=== PATIENT | male | born 1950 | race Caucasian/White ===

== ENCOUNTER 2018-02-17 07:06 | Inpatient (IN) | payer MEDICARE, MEDICAID ==
[~2018-02-17] VITALS: Ht 175.3 cm; Wt 75.3 kg
[2018-02-17 07:15] VITALS: Ht 175.3 cm; Wt 75.3 kg
[2018-02-17 07:52] LABS: BASOPHIL % 0.6 % (0-2); PLATELET COUNT 186 x10^3mcL (130-400); RED CELL DISTRIBUTION WIDTH 13.6 % (11.5-14.5)
[2018-02-17 08:07] LABS: CALCIUM 8.7 mg/dL (8.5-10.1); CARBON DIOXIDE 27.7 mmol/L (21-32); CHLORIDE SERUM 105 mmol/L (98-107); GFR1 > 60 mL/min; GLUCOSE SERUM 100 mg/dL (74-106); POTASSIUM SERUM 4.3 mmol/L (3.5-5.1); SODIUM SERUM 141 mmol/L (136-145)
[2018-02-17 08:12] LABS: ALBUMIN 3.6 g/dL (3.4-5.0); ALKALINE PHOSPHATASE 64 U/L (46-116); ALT/SGPT 38 U/L (16-63); AST/SGOT 27 U/L (15-37); BILIRUBIN TOTAL 0.42 mg/dL (0.20-1.00)
[2018-02-17] MEDS ORDERED: CLOPIDOGREL75 M1 ×2 (09:00→09:01)
[2018-02-17] MEDS ORDERED: ZESTRIL5 MG ×2 (09:00→09:01)
[2018-02-17] MEDS ORDERED: ADVIL200 M1 (09:02)
[2018-02-17] MEDS ORDERED: RANEXA1000 M2 (09:02)
[2018-02-17] MEDS ORDERED: CARVEDILOL6.25 M1 PO (09:02)
[2018-02-17] MEDS ORDERED: TAMSULOSIN HYD0.4 M1 (09:02)
[2018-02-17] MEDS ORDERED: LIPITOR80 MG (09:03)
[2018-02-17 09:58] LABS: T3 TOTAL 0.9 ng/mL
[2018-02-17 10:03] LABS: MAGNESIUM 2.1 mg/dL (1.8-2.4); PHOSPHOROUS 4.4 mg/dL (2.5-4.9)
[2018-02-17 10:04] LABS: CHOLESTEROL/HDL RATIO 2.3
[2018-02-17 10:09] LABS: FREE T4 0.74 ng/dL (0.76-1.46); FREE THYROXINE INDEX 1.8 ug/dL (1.4-4.5)
[2018-02-17 10:49] VITALS: BP 117/67
[2018-02-17 12:56] LABS: microscopic required? NO
[2018-02-17 13:09] LABS: UA SPECIFIC GRAVITY 1.015 (1.005-1.035); urine erythrocyte NEGATIVE (NEGATIVE)
[2018-02-17 13:16] VITALS: BP 119/68
[2018-02-17 16:23] VITALS: BP 112/65
[2018-02-17 19:25] VITALS: BP 107/63
[2018-02-18 05:42] VITALS: BP 109/65
[2018-02-18 06:58] LABS: CALCIUM 9.3 mg/dL (8.5-10.1); CARBON DIOXIDE 32.5 mmol/L (21-32); CHLORIDE SERUM 103 mmol/L (98-107); CREATININE SERUM 1.2 mg/dL (0.7-1.3); GFR1 > 60 mL/min; GLUCOSE SERUM 107 mg/dL (74-106); MAGNESIUM 2.1 mg/dL (1.8-2.4); PHOSPHOROUS 4.4 mg/dL (2.5-4.9); POTASSIUM SERUM 4.9 mmol/L (3.5-5.1); SODIUM SERUM 139 mmol/L (136-145)
[2018-02-18 07:16] LABS: BASOPHIL % 0.4 % (0-2); PLATELET COUNT 177 x10^3mcL (130-400)
[2018-02-18 07:22] LABS: RED CELL DISTRIBUTION WIDTH 14.9 % (11.5-14.5)
[2018-02-18 10:00] VITALS: BP 111/61
[2018-02-18 13:33] VITALS: BP 109/65
[2018-02-18] MEDS ORDERED: CARVEDILOL3.125 M1 PO (13:57)
[2018-02-18 14:09] VITALS: BP 109/65
== END 2018-02-18 14:45 | disposition home or self-care (01) | DRG 308 ==
LOC: ED 07:06 → DU 08:51
PROVIDERS: Emergency Medicine; Internal Medicine
DX: R00.1 Bradycardia, unspecified (principal); N17.0 Acute kidney failure with tubular necrosis; R73.03 Prediabetes; N40.0 Benign prostatic hyperplasia without lower urinary tract symptoms; E78.5 Hyperlipidemia, unspecified; I11.9 Hypertensive heart disease without heart failure; I25.10 Atherosclerotic heart disease of native coronary artery without angina pectoris; I25.2 Old myocardial infarction; Z95.5 Presence of coronary angioplasty implant and graft
CPT/HCPCS: 83880; 84439; J2270; J7030; Q0092